=== PATIENT | female | born 1985 | race Caucasian/White ===

== ENCOUNTER → 2017-05-21 | Outpatient (REF) | LOC: M LAB 11:19 | PROVIDERS: ATTEND Nurse Practitioner Adult Health | DX: Z02.1 Encounter for pre-employment examination (principal) ==

== ENCOUNTER → 2022-06-25 | Outpatient (REF) | LOC: M LAB 14:20 | PROVIDERS: ATTEND Nurse Practitioner Adult Health | DX: Z02.89 Encounter for other administrative examinations (principal) ==

== ENCOUNTER → 2022-07-03 | Outpatient (REF) | LOC: M EMP 13:05 | PROVIDERS: ATTEND Family Medicine | DX: Z11.52 Encounter for screening for COVID-19 (principal) ==

== ENCOUNTER → 2022-07-10 | Outpatient (REF) | LOC: M EMP 07:48 | PROVIDERS: ATTEND Family Medicine | DX: Z20.828 Contact with and (suspected) exposure to other viral communicable diseases (principal) ==

== ENCOUNTER → 2022-07-16 | Outpatient (REF) | LOC: M EMP 08:58 | PROVIDERS: ATTEND Family Medicine | DX: Z11.52 Encounter for screening for COVID-19 (principal) ==

== ENCOUNTER → 2022-07-23 | Outpatient (REF) | LOC: M EMP 08:06 | PROVIDERS: ATTEND Family Medicine | DX: Z20.822 Contact with and (suspected) exposure to COVID-19 (principal) ==

== ENCOUNTER 2022-08-07 14:30 | Emergency (ER) | payer OTHER ==
[~2022-08-07] VITALS: Ht 165.1 cm; Wt 76.5 kg
[2022-08-07] MEDS ORDERED: BUPR150T12 PO (14:47)
[2022-08-07] MEDS ORDERED: TIZA10TA PO (14:47)
[2022-08-07] MEDS ORDERED: OXYC7.5T3 PO (14:47)
[2022-08-07] MEDS ORDERED: PREG50CA2 PO (14:47)
[2022-08-07] MEDS ORDERED: LOSA50TA28 PO (14:47)
[2022-08-07] MEDS ORDERED: PERCOCET 5MG/325MG TAB PO ONE (16:35)
[2022-08-07 17:14] LABS: HEMOGLOBIN 14.8 g/dl (12.0-15.5); MEAN CORPUSCULAR HEMOGLOBIN 30.3 pg (27.0-33.0); MEAN CORPUSCULAR HGB CONC 32.9 g/dl (32.0-36.5); PLATELET COUNT, AUTOMATED 322 10^3/uL (150-450); RED BLOOD COUNT 4.89 10^6/uL (4.00-5.40); WHITE BLOOD COUNT 9.6 10^3/uL (4.0-10.0)
[2022-08-07] MEDS ORDERED: ISOVUE-370 76% 100ML VIAL As Ordered ONE (17:29)
[2022-08-07 18:46] VITALS: BP 141/81
== END 2022-08-07 18:56 | disposition home or self-care (01) ==
LOC: M ED 14:30
DX: M54.2 Cervicalgia (principal); M54.50 Low back pain, unspecified; M25.552 Pain in left hip; R10.9 Unspecified abdominal pain; I10 Essential (primary) hypertension; F17.200 Nicotine dependence, unspecified, uncomplicated; V47.5XXA Car driver injured in collision with fixed or stationary object in traffic accident, initial encounter; Y92.410 Unspecified street and highway as the place of occurrence of the external cause; Y93.89 Activity, other specified; Y99.9 Unspecified external cause status; Z88.0 Allergy status to penicillin; Z79.811 Long term (current) use of aromatase inhibitors; Z79.899 Other long term (current) drug therapy

== ENCOUNTER → 2022-08-14 | Outpatient (REF) ==
[~2022-08-14] MED LIST: BUPR150T12 PO; LOSA50TA28 PO; OXYC7.5T3 PO; PREG50CA2 PO; TIZA10TA PO
[2022-08-14 17:11] LABS: RSV AMPLIFICATION NEGATIVE (NEGATIVE)
== END ==
LOC: M EMP 15:24
PROVIDERS: ATTEND Family Medicine
DX: Z20.818 Contact with and (suspected) exposure to other bacterial communicable diseases (principal)